=== PATIENT | male | born 1985 | race Caucasian/White ===

== ENCOUNTER 2022-01-03 18:55 | Inpatient (IN) ==
[2022-01-03] MEDS ORDERED: 0.9 % Sodium Chloride 1,000 ML IVC ONE (20:44)
[2022-01-03] MEDS ORDERED: *HR* LORazepam 2 MG/ML VIAL ONE (20:55)
[2022-01-03 20:59] LABS: Basophils % 0.5 %; Hemoglobin 17.8 g/dL (12.9-16.9); Immature Granulocytes % 0.7 % (0-4); Mean Platelet Volume 9.9 fL (9.4-12.4); Red Cell Distribution Width 12.3 % (11.5-14.5)
[2022-01-03 21:00] LABS: Basophils # 0.2 K/mcL (0.0-0.2); Hematocrit 51.4 % (37.5-50.1); Lymphocytes # 2.6 K/mcL (0.6-4.6); Lymphocytes % 7.6 %; Mean Corpuscular HGB Conc 34.6 g/dL (31.6-35.5); Mean Corpuscular Hemoglobin 31.2 pg (28.0-33.3); Monocytes # 2.3 K/mcL (0.0-1.3); Monocytes % 6.7 %; Platelet Count 430 K/mcL (140-400); Red Blood Count 5.71 M/mcL (4.19-5.50); Segmented Neutrophils % 84.5 %
[2022-01-03] MEDS ORDERED: *HR* LORazepam 2 MG/ML VIAL IVP ONE (21:01)
[2022-01-03 21:09] LABS: Alanine Aminotransferase 22 Units/L (7-52); Albumin 5.5 g/dL (3.5-5.7); Albumin/Globulin Ratio 1.7 (1.1-2.2); Alkaline Phosphatase 88 Units/L (34-104); Aspartate Amino Transferase 21 Units/L (13-39); BUN/Creatinine Ratio 14 (6-26); Bilirubin,Direct 0.1 mg/dL (0.0-0.2); Bilirubin,Indirect 0.5 mg/dL (0.0-1.0); Bilirubin,Total 0.6 mg/dL (0.3-1.0); Blood Urea Nitrogen 18 mg/dL (6-20); Calcium 10.9 mg/dL (8.6-10.3); Carbon Dioxide 22 mEq/L (23-29); Chloride 93 mEq/L (98-107); Ethanol < 10 mg/dL (Less than 10); Globulin 3.2 g/dL (2.4-3.5); Glucose 197 mg/dL (70-105); Lipase 17 Units/L (11-82); Osmolality,Calculated 299 (280-300); Potassium 3.7 mEq/L (3.5-5.1); Sodium 141 mEq/L (136-145); Total Protein 8.7 g/dL (6.4-8.9); eGFR For African Americans > 60 (> 60); eGFR For Non-African Americans > 60 (> 60)
[2022-01-03 21:11] LABS: Neutrophils # 28.5 K/mcL (1.6-8.9)
[2022-01-03 21:13] LABS: White Blood Count 33.7 K/mcL (4.3-11.1)
[2022-01-03 21:42] LABS: Platelet Estimate Normal (Normal)
[2022-01-03 22:05] LABS: Acetaminophen < 10 mcg/mL (10-20); Chol/HDL Ratio 2.7 (0-4.9); Cholesterol 136 mg/dL (< 200); Creatine Kinase 131 Units/L (30-223); HDL Cholesterol 51 mg/dL (40-59); LDL Cholesterol,Calculated 67 mg/dL (< 100); Salicylate < 2.5 mg/dL (15.0-30.0); Thyroid Stimulating Hormone 2.256 mcIU/mL (0.340-5.600); Triglycerides 91 mg/dL (< 150)
[2022-01-03] MEDS ORDERED: 0.9 % Sodium Chloride 2,000 ML IV ONE (22:09)
[2022-01-03] MEDS ORDERED: Isovue-370 500 ML BOTTLE IVP ONE (22:09)
[2022-01-03] MEDS ORDERED: Piperacillin/Tazobactam 3.375 GM in 0.9 % Sodium Chloride Mini Bag 100 ML IVPB ONE (22:12)
[2022-01-03 22:39] LABS: Influenza A PCR Negative (Negative); Influenza B PCR Negative (Negative); Resp. Syncytial Virus PCR Negative (Negative)
[2022-01-03 22:41] LABS: SARS-CoV-2 by PCR (In House) Negative (Negative)
[2022-01-03] MEDS ORDERED: Ondansetron 4 MG/2 ML VIAL IVP ONE (22:57)
[2022-01-04] MEDS ORDERED: Naloxone 0.4 MG/ML INJ IVP PRN (00:21)
[2022-01-04] MEDS ORDERED: FOMEPIZOLE IV ONE (00:31)
[2022-01-04] MEDS ORDERED: SODIUM CHLORIDE 0.9% IV ONE (00:31)
[2022-01-04 00:36] LABS: Estimated Average Glucose 111 mg/dl; Hemoglobin A1C 5.5 %
[2022-01-04 00:38] LABS: Bilirubin,Urine Negative (Negative); Blood,Urine Trace (Negative); Clarity,Urine Clear (Clear); Color,Urine Colorless (Yellow); Glucose,Urine (UA) Normal (Normal); Ketones,Urine Negative (Negative); Leukocyte Esterase,Urine Negative (Negative); Nitrite,Urine Negative (Negative); Protein,Urine 30 mg/dL (Neg-Trace); Specific Gravity,Urine > 1.030 (1.010-1.025); Urobilinogen,Urine Normal (Normal); WBC,Urine 0-3 per hpf (0-3)
[2022-01-04 00:42] LABS: Amphetamine Screen,Urine Positive ng/mL (Cutoff=1000); Barbiturate Screen,Urine Negative ng/mL (Cutoff=200); Benzodiazepines Screen,Urine Negative ng/mL (Cutoff=200); Cannabinoid Screen,Urine Positive ng/mL (Cutoff = 50); Cocaine Screen,Urine Negative ng/mL (Cutoff= 300); Opiate Screen,Urine Negative ng/mL (Cutoff=300); Phencyclidine Screen,Urine Negative ng/mL (Cutoff=25)
[2022-01-04] MEDS ORDERED: Ondansetron ODT 4 MG TAB.RAPDIS SL PRN (02:05)
[2022-01-04] MEDS: Folic Acid 1 MG TABLET PO SCH ×2 (02:26→09:29)
[2022-01-04] MEDS: Vitamin B Complex/Vit C/Vit E 1 EACH TABLET PO SCH ×2 (02:26→09:29)
[2022-01-04] MEDS: Thiamine (B-1) 100 MG TABLET PO SCH ×2 (02:26→09:29)
[2022-01-04] MEDS: *HR* LORazepam 2 MG/ML VIAL IVP PRN ×7 (02:27→23:58)
[2022-01-04 04:37] LABS: ABG Base Excess 3 mEq/L (-2 to 3); ABG HCO3 28 mEq/L (21-27); ABG Oxygen Saturation 97 % (95-98); ABG PCO2 41 mmHg (35-45); ABG PH 7.44 pH Units (7.32-7.45); ABG PO2 84 mmHg (85-104); ABG TCO2 29 mEq/L (20-26)
[2022-01-04] MEDS: *HR* Heparin 5,000 UNIT/ML VIAL SQ SCH ×3 (05:55→22:08)
[2022-01-04] MEDS: 0.9 % Sodium Chloride 1,000 ML IVC SCH ×2 (09:31→20:06)
[2022-01-04 09:46] LABS: Basophils # 0.1 K/mcL (0.0-0.2); Basophils % 0.6 %; Eosinophils % 0.2 %; Hematocrit 39.2 % (37.5-50.1); Immature Granulocytes % 0.3 % (0-4); Lymphocytes # 2.3 K/mcL (0.6-4.6); Lymphocytes % 12.6 %; Mean Corpuscular HGB Conc 34.7 g/dL (31.6-35.5); Mean Corpuscular Hemoglobin 31.5 pg (28.0-33.3); Mean Corpuscular Volume 90.7 fL (83.0-100.0); Mean Platelet Volume 9.4 fL (9.4-12.4); Monocytes # 1.5 K/mcL (0.0-1.3); Monocytes % 8.1 %; Neutrophils # 13.9 K/mcL (1.6-8.9); Platelet Count 214 K/mcL (140-400); Red Blood Count 4.32 M/mcL (4.19-5.50); Red Cell Distribution Width 12.2 % (11.5-14.5); Segmented Neutrophils % 78.2 %; White Blood Count 17.8 K/mcL (4.3-11.1)
[2022-01-04 09:47] LABS: Hemoglobin 13.6 g/dL (12.9-16.9)
[2022-01-04 10:06] LABS: Alanine Aminotransferase 14 Units/L (7-52); Albumin 3.9 g/dL (3.5-5.7); Albumin/Globulin Ratio 1.7 (1.1-2.2); Alkaline Phosphatase 64 Units/L (34-104); Aspartate Amino Transferase 16 Units/L (13-39); BUN/Creatinine Ratio 16 (6-26); Bilirubin,Total 0.7 mg/dL (0.3-1.0); Blood Urea Nitrogen 15 mg/dL (6-20); Calcium 8.6 mg/dL (8.6-10.3); Carbon Dioxide 30 mEq/L (23-29); Chloride 104 mEq/L (98-107); Globulin 2.3 g/dL (2.4-3.5); Glucose 90 mg/dL (70-105); Osmolality,Calculated 284 (280-300); Potassium 3.6 mEq/L (3.5-5.1); Sodium 137 mEq/L (136-145); Total Protein 6.2 g/dL (6.4-8.9); eGFR For African Americans > 60 (> 60); eGFR For Non-African Americans > 60 (> 60)
[2022-01-04] MEDS ORDERED: SODIUM CHLORIDE 0.9% IV SCH (14:00)
[2022-01-04] MEDS ORDERED: FOMEPIZOLE IV SCH (14:00)
[2022-01-04] MEDS: haloperidoL 5 MG TABLET PO SCH ×2 (17:02→20:04)
[2022-01-05] MEDS: *HR* LORazepam 2 MG/ML VIAL IVP PRN ×5 (01:34→07:44)
[2022-01-05] MEDS: *HR* Heparin 5,000 UNIT/ML VIAL SQ SCH ×3 (04:23→20:08)
[2022-01-05] MEDS: haloperidoL 5 MG TABLET PO SCH ×2 (06:55→20:28)
[2022-01-05] MEDS ORDERED: Ziprasidone 10 MG, Closed System Device IM Kit 1 EACH in Water for inj. (sterile) 0.5 ML IM ONE (07:47)
[2022-01-05] MEDS: Dexmedetomidine HCl 400 MCG/100 ML MLS IVC SCH ×3 (07:51→16:25)
[2022-01-05] MEDS: Vitamin B Complex/Vit C/Vit E 1 EACH TABLET PO SCH (09:20)
[2022-01-05] MEDS: Folic Acid 1 MG TABLET PO SCH (09:20)
[2022-01-05] MEDS: Cholecalciferol (D-3) 1,000 UNIT (25MCG) TABLET PO SCH (09:20)
[2022-01-05] MEDS: Thiamine (B-1) 100 MG TABLET PO SCH (09:20)
[2022-01-05] MEDS: Nicotine 2 MG GUM BC PRN (20:28)
[2022-01-05] MEDS: traZODone 50 MG TABLET PO PRN (23:36)
[2022-01-06 04:58] LABS: Hematocrit 38.1 % (37.5-50.1); Mean Corpuscular HGB Conc 34.1 g/dL (31.6-35.5); Mean Corpuscular Hemoglobin 30.4 pg (28.0-33.3); Mean Platelet Volume 9.7 fL (9.4-12.4); Platelet Count 172 K/mcL (140-400); Red Blood Count 4.28 M/mcL (4.19-5.50); Red Cell Distribution Width 11.6 % (11.5-14.5)
[2022-01-06 04:59] LABS: White Blood Count 7.5 K/mcL (4.3-11.1)
[2022-01-06 05:16] LABS: BUN/Creatinine Ratio 11 (6-26); Blood Urea Nitrogen 9 mg/dL (6-20); Calcium 8.7 mg/dL (8.6-10.3); Carbon Dioxide 27 mEq/L (23-29); Chloride 104 mEq/L (98-107); Glucose 95 mg/dL (70-105); Osmolality,Calculated 282 (280-300); Potassium 3.4 mEq/L (3.5-5.1); Sodium 137 mEq/L (136-145); eGFR For African Americans > 60 (> 60); eGFR For Non-African Americans > 60 (> 60)
[2022-01-06] MEDS: *HR* Heparin 5,000 UNIT/ML VIAL SQ SCH ×3 (05:53→20:12)
[2022-01-06] MEDS: Dexmedetomidine HCl 400 MCG/100 ML MLS IVC SCH (09:20)
[2022-01-06] MEDS: Cholecalciferol (D-3) 1,000 UNIT (25MCG) TABLET PO SCH (09:38)
[2022-01-06] MEDS: Folic Acid 1 MG TABLET PO SCH (09:38)
[2022-01-06] MEDS: Thiamine (B-1) 100 MG TABLET PO SCH (09:38)
[2022-01-06] MEDS: Vitamin B Complex/Vit C/Vit E 1 EACH TABLET PO SCH (09:38)
[2022-01-06] MEDS: haloperidoL 5 MG TABLET PO SCH ×2 (09:38→22:42)
[2022-01-06] MEDS: Nicotine 2 MG GUM BC PRN ×2 (11:41→15:18)
[2022-01-06] MEDS: *HR* LORazepam 2 MG/ML VIAL IVP PRN ×3 (11:42→18:18)
[2022-01-06] MEDS: traZODone 50 MG TABLET PO PRN (22:42)
[2022-01-07] MEDS: hydrOXYzine pamoate 25 MG CAPSULE PO PRN ×3 (02:54→14:27)
[2022-01-07] MEDS: Dexmedetomidine HCl 400 MCG/100 ML MLS IVC SCH (02:54)
[2022-01-07] MEDS: *HR* Heparin 5,000 UNIT/ML VIAL SQ SCH ×3 (05:04→20:52)
[2022-01-07] MEDS: Cholecalciferol (D-3) 1,000 UNIT (25MCG) TABLET PO SCH (07:32)
[2022-01-07] MEDS: Vitamin B Complex/Vit C/Vit E 1 EACH TABLET PO SCH (07:32)
[2022-01-07] MEDS: haloperidoL 5 MG TABLET PO SCH ×2 (07:32→20:52)
[2022-01-07] MEDS: Folic Acid 1 MG TABLET PO SCH (07:32)
[2022-01-07] MEDS: Thiamine (B-1) 100 MG TABLET PO SCH (07:32)
[2022-01-07] MEDS: Nicotine 2 MG GUM BC PRN ×2 (07:33→17:13)
[2022-01-07] MEDS: *HR* LORazepam 2 MG/ML VIAL IVP PRN ×2 (11:05→15:20)
[2022-01-07] MEDS ORDERED: *HR* LORazepam 2 MG/ML VIAL IVP ONE (17:33)
[2022-01-08] MEDS: traZODone 50 MG TABLET PO PRN (01:37)
[2022-01-08] MEDS: *HR* Heparin 5,000 UNIT/ML VIAL SQ SCH ×5 (05:54→21:15)
[2022-01-08] MEDS: Folic Acid 1 MG TABLET PO SCH (07:39)
[2022-01-08] MEDS: haloperidoL 5 MG TABLET PO SCH ×2 (07:39→20:05)
[2022-01-08] MEDS: Vitamin B Complex/Vit C/Vit E 1 EACH TABLET PO SCH (07:39)
[2022-01-08] MEDS: Cholecalciferol (D-3) 1,000 UNIT (25MCG) TABLET PO SCH (07:39)
[2022-01-08] MEDS: Thiamine (B-1) 100 MG TABLET PO SCH (07:39)
[2022-01-08] MEDS: *HR* LORazepam 2 MG/ML VIAL IVP PRN ×5 (07:47→22:00)
[2022-01-08] MEDS: Nicotine 2 MG GUM BC PRN (12:13)
[2022-01-08] MEDS ORDERED: Ziprasidone 10 MG, Closed System Device IM Kit 1 EACH in Water for inj. (sterile) 0.5 ML IM ONE (13:01)
[2022-01-08] MEDS: diazePAM 5 MG TABLET PO SCH (20:05)
[2022-01-09] MEDS: *HR* Heparin 5,000 UNIT/ML VIAL SQ SCH ×3 (04:34→20:21)
[2022-01-09] MEDS: *HR* LORazepam 2 MG/ML VIAL IVP PRN ×3 (05:27→16:24)
[2022-01-09] MEDS: Thiamine (B-1) 100 MG TABLET PO SCH (08:32)
[2022-01-09] MEDS: Folic Acid 1 MG TABLET PO SCH (08:33)
[2022-01-09] MEDS: haloperidoL 5 MG TABLET PO SCH ×2 (08:33→20:15)
[2022-01-09] MEDS: diazePAM 5 MG TABLET PO SCH ×3 (08:33→20:15)
[2022-01-09] MEDS: Cholecalciferol (D-3) 1,000 UNIT (25MCG) TABLET PO SCH (08:33)
[2022-01-09] MEDS: Vitamin B Complex/Vit C/Vit E 1 EACH TABLET PO SCH (08:33)
[2022-01-09] MEDS: Nicotine 2 MG GUM BC PRN ×2 (10:52→20:15)
[2022-01-09 13:26] VITALS: O2SAT 96
[2022-01-09] MEDS: Ziprasidone 10 MG, Closed System Device IM Kit 1 EACH in Water for inj. (sterile) 0.5 ML IM PRN (17:10)
[2022-01-09] MEDS: hydrOXYzine pamoate 25 MG CAPSULE PO PRN (18:50)
[2022-01-09] MEDS: traZODone 50 MG TABLET PO PRN (20:15)
[2022-01-10] MEDS: hydrOXYzine pamoate 25 MG CAPSULE PO PRN ×2 (04:38→15:31)
[2022-01-10] MEDS: *HR* Heparin 5,000 UNIT/ML VIAL SQ SCH ×2 (06:52→15:24)
[2022-01-10] MEDS: Dexmedetomidine HCl 400 MCG/100 ML MLS IVC SCH ×2 (07:43→09:28)
[2022-01-10] MEDS: Thiamine (B-1) 100 MG TABLET PO SCH (07:58)
[2022-01-10] MEDS: Folic Acid 1 MG TABLET PO SCH (07:58)
[2022-01-10] MEDS: haloperidoL 5 MG TABLET PO SCH (07:58)
[2022-01-10] MEDS: diazePAM 5 MG TABLET PO SCH ×2 (07:58→15:27)
[2022-01-10] MEDS: Cholecalciferol (D-3) 1,000 UNIT (25MCG) TABLET PO SCH (07:58)
[2022-01-10] MEDS: Vitamin B Complex/Vit C/Vit E 1 EACH TABLET PO SCH (07:58)
[2022-01-10] MEDS: Nicotine 2 MG GUM BC PRN ×2 (09:09→11:22)
[2022-01-10 15:10] VITALS: BP 103/67; PULSE 72
[2022-01-10 15:12] VITALS: TEMP 98.6
[2022-01-10] MEDS: Ziprasidone 10 MG, Closed System Device IM Kit 1 EACH in Water for inj. (sterile) 0.5 ML IM PRN (16:23)
== END 2022-01-10 16:30 | DRG 897 ==
LOC: 2NNU 18:55 → EMEROOARM 18:55 → 2NNU 01-04 01:10
PROVIDERS: ADMIT Internal Medicine; ATTEND Internal Medicine

== ENCOUNTER 2022-01-10 16:46 | Inpatient (IN) ==
[2022-01-10] MEDS ORDERED: *HR* LORazepam 2 MG/ML VIAL IM PRN (16:57)
[2022-01-10] MEDS ORDERED: haloperidoL 5 MG TABLET PO PRN (16:57)
[2022-01-10] MEDS ORDERED: *HR* LORazepam 1 MG TABLET PO PRN (16:57)
[2022-01-10] MEDS ORDERED: Acetaminophen 325 MG TABLET PO PRN (16:57)
[2022-01-10] MEDS ORDERED: Haloperidol Lactate 5 MG/ML VIAL IM PRN (16:57)
[2022-01-10] MEDS ORDERED: Ziprasidone 20 MG CAPSULE PO PRN (17:38)
[2022-01-10] MEDS: hydrOXYzine pamoate 25 MG CAPSULE PO PRN (18:32)
[2022-01-10] MEDS ORDERED: Nicotine 2 MG GUM BC PRN (19:16)
[2022-01-10] MEDS: traZODone 50 MG TABLET PO PRN (20:44)
[2022-01-11] MEDS ORDERED: haloperidoL 5 MG TABLET PO ONE (18:29)
[2022-01-11] MEDS: traZODone 50 MG TABLET PO PRN (21:15)
[2022-01-11] MEDS: hydrOXYzine pamoate 25 MG CAPSULE PO PRN (21:15)
[2022-01-12] MEDS: hydrOXYzine pamoate 25 MG CAPSULE PO PRN (16:48)
[2022-01-12] MEDS: traZODone 50 MG TABLET PO SCH (20:44)
[2022-01-12] MEDS: hydrOXYzine pamoate 25 MG CAPSULE PO SCH (20:44)
[2022-01-12] MEDS: haloperidoL 5 MG TABLET PO SCH (20:44)
[2022-01-13] MEDS: haloperidoL 5 MG TABLET PO SCH ×2 (09:09→20:29)
[2022-01-13 20:13] VITALS: TEMP 97.9; O2SAT 98
[2022-01-13] MEDS: traZODone 50 MG TABLET PO SCH (20:29)
[2022-01-13] MEDS: hydrOXYzine pamoate 25 MG CAPSULE PO SCH (20:30)
[2022-01-13] MEDS ORDERED: haloperidoL 5 MG TABLET PO SCH (21:00)
[2022-01-14] MEDS: haloperidoL 5 MG TABLET PO SCH (08:00)
[2022-01-14 08:18] VITALS: BP 99/68; PULSE 88
== END 2022-01-14 09:45 | disposition home or self-care (01) | DRG 885 ==
LOC: MERGE 16:46 → 1ANU 16:46
PROVIDERS: ADMIT Psychiatry & Neurology Psychiatry; ATTEND Psychiatry & Neurology Psychiatry